=== PATIENT | male | born 1970 | race Caucasian/White ===

== ENCOUNTER 2022-07-22 03:24 | Emergency (ER) | payer MEDICAID ==
[~2022-07-22] VITALS: Ht 165.1 cm; Wt 113.0 kg
[2022-07-22] MEDS ORDERED: IBUP-2029 PO (07:43)
[2022-07-22 10:00] VITALS: BP 134/86
== END 2022-07-22 10:01 | disposition home or self-care (01) ==
LOC: ER 03:33
DX: S22.31XA Fracture of one rib, right side, initial encounter for closed fracture (principal); F10.129 Alcohol abuse with intoxication, unspecified; Y90.0 Blood alcohol level of less than 20 mg/100 ml; X58.XXXA Exposure to other specified factors, initial encounter; Y93.89 Activity, other specified; Y92.89 Other specified places as the place of occurrence of the external cause; Y99.8 Other external cause status; R07.89 Other chest pain
CPT/HCPCS: 71101; 99283